=== PATIENT | male | born 1965 | race Caucasian/White ===

== ENCOUNTER 2016-03-31 15:21 | Emergency (ER) | payer SELFPAY ==
[~2016-03-31] VITALS: Ht 172.7 cm; Wt 80.7 kg
[~2016-03-31 15:21] MED LIST: CIPRO 500MG TA500 MG PO; LORTAB 5/500 501 TAB PO; MEDROL 4MG. DOSE4 MG PO; NOMEDS; ULTRAM 50 MG TA50 MG PO
--- NOTE | 2016-03-31 16:14 | CARDIOVASCULAR REPORT ---
"Venous Exam Indications: 729.5 Pain in limb. IMPRESSIONS 1. There is no evidence of significant Reflux. 2. No evidence of deep or superficial vein thrombosis involving the left lower extremity Left lower extremity venous duplex evaluation. Doppler flow study including spectral analysis, color and moore scale imaging. Location: Vascular laboratory. Patient status: Emergency department. Tables: Venous flow and imaging: + +-------+ + |Location |Overall|Flow properties | + +-------+ + |Left common femoral |Patent |Normal phasicity; spontaneous; | | | |normal augmentation; compressible | + +-------+ + |Left saphenofemoral junction|Patent |Compressible | + +-------+ + |Left profunda femoral |Patent |Compressible | + +-------+ + |Left femoral |Patent |Normal phasicity; spontaneous; | | | |normal augmentation; compressible | + +-------+ + |Left greater saphenous |Patent |Normal phasicity; spontaneous; | | | |normal augmentation; compressible | + +-------+ + |Left popliteal |Patent |Normal phasicity; spontaneous; | | | |normal augmentation; compressible | + +-------+ + |Left posterior tibial |Patent |Compressible | + +-------+ + |Left peroneal |Patent |Compressible | + +-------+ + |Left gastrocnemius |Patent |Compressible | + +-------+ + |Left soleal |Patent |Compressible | + +-------+ + (Report amended ) Electronically signed by: Jose Lofton [id number]"
[2016-03-31] MEDS ORDERED: ROBAXIN 500 MG500 MG PO (16:35)
[2016-03-31] MEDS ORDERED: ETODOLAC300 M1 PO (16:35)
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
[2016-03-31 16:51] VITALS: BP 144/94
--- NOTE | 2016-04-01 12:24 | RADIOLOGY REPORT PS360 ---
LUMBAR SPINE-2 TO 3 VIEWS COMPARISON: None HISTORY: Left leg pain TECHNIQUE: AP and lateral views FINDINGS: There is some straightening of the normal curvature at the thoracolumbar junction. All lumbar vertebrae appear intact and is no significant disc space narrowing. There is minor lateral osteophytic spurring at several levels. The SI joints are normal. IMPRESSION: Minor degenerative changes as noted
== END 2016-03-31 16:52 | disposition home or self-care (01) ==
LOC: ER 15:21
DX: M54.42 Lumbago with sciatica, left side (principal); Z72.0 Tobacco use; D17.24 Benign lipomatous neoplasm of skin and subcutaneous tissue of left leg